=== PATIENT | female | born 1945 | race Caucasian/White ===

== ENCOUNTER 2020-10-10 14:58 | Outpatient (CLI) | payer MEDICARE, OTHER ==
[~2020-10-10] VITALS: Ht 154.9 cm; Wt 37.9 kg
[2020-10-10] MEDS ORDERED: CELEXA10 MG PO (15:38)
[2020-10-10] MEDS ORDERED: PRINIVIL40 MG PO (15:38)
[2020-10-10] MEDS ORDERED: NORVASC 10MG10 MG PO (15:39)
[2020-10-10] MEDS ORDERED: PLAVIX 75MG TAB75 MG PO (15:39)
[2020-10-10] MEDS ORDERED: APRESOLINE 25MG25 MG PO (15:40)
[2020-10-10] MEDS ORDERED: ATARAX 25MG25 MG/TAB PO (15:41)
[2020-10-10] MEDS ORDERED: ASPIRIN E.C. 8181 MG PO (15:42)
[2020-10-10] MEDS ORDERED: VITAMIN D31000 I1 PO (15:43)
[2020-10-10 15:44] VITALS: BP 148/71; PULSE 87; TEMP 98.5
== END 2020-10-10 17:10 | disposition home or self-care (01) ==
LOC: EUO 14:58
DX: M81.0 Age-related osteoporosis without current pathological fracture (principal)
CPT/HCPCS: J0897

== ENCOUNTER 2020-11-25 01:18 | Observation (INO) | payer MEDICARE, OTHER ==
[~2020-11-25] VITALS: Ht 154 cm; Wt 38.6 kg
[~2020-11-25 01:18] MED LIST: APRESOLINE 25MG25 MG PO; ASPIRIN E.C. 8181 MG PO; ATARAX 25MG25 MG/TAB PO; CELEXA10 MG PO; NORVASC 10MG10 MG PO; PLAVIX 75MG TAB75 MG PO; PRINIVIL40 MG PO; VITAMIN D31000 I1 PO
[2020-11-25 01:43] LABS: HEMATOCRIT 38.7 % (37.0-47.0); HEMOGLOBIN 12.6 g/dl (12.5-16.0); MEAN CORPUSCULAR HEMOGLOBIN 29 pg (27.0-31.0); RED BLOOD COUNT 4.39 M/mm3 (4.10-5.30)
[2020-11-25 01:44] LABS: BASO % 0.2 % (0.0-2.0); EOS # 0.1 (0.0-0.7); EOS % 0.6 % (0-4.0); GRAN # 11.1 (1.4-6.5); LYMPH # 0.6 (1.2-3.4); MEAN CELL VOLUME 88 fl (80.0-100.0); MEAN CORPUSCULAR HGB CONC 33 g/dl (33.0-37.0); MEAN PLATELET VOLUME 10.3 fl (7.4-10.4); MONO # 0.5 (0.1-0.6); MONO % 3.8 % (1.7-9.3); PLATELET COUNT 243 K/mm3 (130-400); REDCELL DISTRIBUTION WIDTH-CV 13.3 % (11.5-14.5)
[2020-11-25 01:49] LABS: ALBUMIN 3.7 gm/dL (3.5-5.0); BLOOD UREA NITROGEN 39 mg/dL (7-17); CARBON DIOXIDE 17 mmol/L (22-30); CHLORIDE 106 mmol/L (98-107); CREATININE, serum 1.22 (0.52-1.25); GLUCOSE 180 mg/dL (74-106); SODIUM 134 mmol/L (137-145); TOTAL PROTEIN 6.7 gm/dL (6.4-8.2)
[2020-11-25 01:50] LABS: ALANINE AMINOTRANSFERASE 20 U/L (4-34); ALKALINE PHOSPHATASE 55 U/L (50-136); AST,SGOT 35 U/L (15-37); BILIRUBIN,TOTAL 0.6 mg/dL (0.0-1.0); C-REACTIVE PROTEIN < 0.5 mg/dL (0.0-0.9); TROPONIN-I < 0.012 ng/mL (0.000-0.035)
[2020-11-25 01:51] LABS: ANION GAP 11 mmol/L (7-16)
[2020-11-25] MEDS ORDERED: NORVASC 5MG5 MG/TAB PO (03:15)
[2020-11-25] MEDS ORDERED: PROVENTIL0.09 MG/A1 IH (03:19)
[2020-11-25] MEDS ORDERED: PROLIA60 MG/ML SQ (03:19)
[2020-11-25] MEDS ORDERED: IPRATROPIUM BROM3 M1 IH (03:20)
[2020-11-25] MEDS ORDERED: ANTIVERT 12.512.5 MG PO (03:20)
[2020-11-25 05:08] VITALS: BP 127/42; PULSE 83; TEMP 98.2
--- NOTE | 2020-11-25 05:33 | NUR ---
Patient up to room 344 via stretcher. Moved over and repositioned. Oriented to room and call light. Admission complete. Patient has complaints of nausea. Fluids started and phenergen administered. No additional needs at this time.
[2020-11-25 07:32] VITALS: BP 103/53; PULSE 85; TEMP 98.7
--- NOTE | 2020-11-25 08:00 | NUR ---
Patient in bed resting. Alert and oriented x 3. Assessment complete. Fluids infusing per orders. Mouth swabs provided for dry mouth. Denies further needs at this time.
--- NOTE | 2020-11-25 11:00 | NUR ---
Contacted hospitalist for diet order, patient would like ice chips. New diet entered at this time.
[2020-11-25 11:15] VITALS: BP 115/41; PULSE 85; TEMP 98.1
--- NOTE | 2020-11-25 13:04 | NUR ---
Director Of Regulatory Affairs offered prayer and support with patient while family was in room.
--- NOTE | 2020-11-25 14:07 | NUR ---
Plan to return home with support from Family and Son IN LAW Bernardo and Neva DTR [phone]. PCP is Dr. Martell. DME use [facility] Patient reports that she resides with her DTR and SON in law. Patient indicated that she has support and her DTR is home with her all day. Educated on waiting on PT/OT recommedations and educated on Home health supports. Patient reports that she uses [employer] Patient report that she is fairly independent. Will follow for additional supports.
[2020-11-25 15:03] LABS: COLLECTION METHOD CATHETER
[2020-11-25 15:19] LABS: MUCOUS Present /lpf; PH 5 (5-8); SQUAMOUS EPITHELIAL 0-2 /hpf; URINE APPEARANCE Hazy; URINE BACTERIA Many /hpf; URINE BILIRUBIN Negative (NEGATIVE); URINE BLOOD Negative (NEGATIVE); URINE COLOR Yellow; URINE GLUCOSE Negative (NEGATIVE); URINE KETONE Trace (NEGATIVE); URINE LEUKOCYTE ESTERASE 3+ (NEGATIVE); URINE NITRATE Positive (NEGATIVE); URINE PROTEIN(semi-quant) Negative (NEGATIVE); URINE UROBILINOGEN Negative (NEGATIVE)
[2020-11-25 15:36] VITALS: BP 112/42; PULSE 86; TEMP 99.1
--- NOTE | 2020-11-25 16:14 | NUR ---
Contacted Dr. Justin about UA.
--- NOTE | 2020-11-25 17:55 | NUR ---
Patient family called out, states she started having pain to RLE, sudden onset. Radiating from ankle to hip. Dr. Justin in to see patient.
--- NOTE | 2020-11-25 19:02 | NUR ---
Patient doing well throughout the day, continues to have mild nausea. Phenergan given this afternoon for increased nausea. Family remains at bedside through the day. Denies needs at this time. Reported off to supervisor machine setter.
[2020-11-25 20:12] VITALS: BP 109/44; PULSE 89; TEMP 99
[2020-11-26] VITALS (7 sets, daily range): BP systolic 92–132; BP diastolic 33–53; PULSE 77–96; TEMP 97.6–98.7
--- NOTE | 2020-11-26 04:56 | NUR ---
PT IN BED. WARM PACK APPLIED TO RIGHT FOOT. NO N/V ON CERTIFIED SCRUM MASTER. POOR P.O. INTAKE. AFEBRILE.
[2020-11-26 06:30] LABS: BASO % 0.3 % (0.0-2.0); GRAN # 2.5 (1.4-6.5); GRAN % 77.5 % (42.2-75.2); LYMPH # 0.5 (1.2-3.4); LYMPH % 14.1 % (20.0-51.0); MEAN CELL VOLUME 91 fl (80.0-100.0); MEAN CORPUSCULAR HGB CONC 31 g/dl (33.0-37.0); MEAN PLATELET VOLUME 10.5 fl (7.4-10.4); MONO # 0.2 (0.1-0.6); MONO % 7.5 % (1.7-9.3); PLATELET COUNT 164 K/mm3 (130-400); RED BLOOD COUNT 3.55 M/mm3 (4.10-5.30); REDCELL DISTRIBUTION WIDTH-CV 13.8 % (11.5-14.5)
[2020-11-26 06:42] LABS: CALCIUM 6.4 mg/dL (8.4-10.2); CREATININE, serum 1.02 (0.52-1.25); HEMATOCRIT 32.3 % (37.0-47.0); HEMOGLOBIN 10.1 g/dl (12.5-16.0); MEAN CORPUSCULAR HEMOGLOBIN 28 pg (27.0-31.0); POTASSIUM 4.2 mmol/L (3.4-5.0)
--- NOTE | 2020-11-26 08:30 | NUR ---
Patient resting in bed. Offered to get her up out of bed, but she reports she needs time to wake up. Tyelnol for pain. applejuice for breakfast no other interst.
--- NOTE | 2020-11-26 10:30 | NUR ---
Hospitalist rounded. Plan of care reviewed. Patient family at bedside. food ordered. Patietn denies nausea. Just minimal appetite.
--- NOTE | 2020-11-26 12:00 | NUR ---
Patient assisted to take a shower. Patient did not want to wash her hair. She is steady of her feet with walker. Fresh linens. She tolerated fruit, does not like the ensure. Po intake encourage. Ivf per orders. Patient voided while up dark laverne urine. Her supportive family at bedside.
--- NOTE | 2020-11-26 14:56 | NUR ---
Patient resting in bed. Tylenol for continued chronic joint pain. continues to encouraged po intake. her sone at bedside.
--- NOTE | 2020-11-26 18:58 | NUR ---
Patient resting in bed with family at her side. Dinner ordered. Thankful for cares given. Ivf per orders. She is in positive spirits. Bedside report to night nurse
--- NOTE | 2020-11-26 21:41 | NUR ---
PT SITTING AT EDGE OF BED, TAKES HS MED. SHORT OF BREATH WITH ACTIVITY, OXYGEN AT 1L/NC. IS ALERT AND ORIENTED X4. IVF TO RIGHT FOREARM. LUNGS DIMINISHED BILATERALLY, NPC. ASSISTED TO BATHROOM, VOIDS 300CC DARK YELLOW URINE. BACK TO BED.
[2020-11-27 04:00] VITALS: BP 127/56; PULSE 90; TEMP 98.2
--- NOTE | 2020-11-27 06:00 | NUR ---
PT HAS RESTED POORLY THIS SHIFT. SCHEDULED TORADOL GIVEN. IVF TO RIGHT WRIST.
[2020-11-27 06:40] LABS: MEAN CELL VOLUME 91 fl (80.0-100.0); MEAN CORPUSCULAR HGB CONC 32 g/dl (33.0-37.0); MEAN PLATELET VOLUME 10.9 fl (7.4-10.4); PLATELET COUNT 144 K/mm3 (130-400); RED BLOOD COUNT 3.35 M/mm3 (4.10-5.30); REDCELL DISTRIBUTION WIDTH-CV 14.1 % (11.5-14.5)
[2020-11-27 06:42] LABS: HEMATOCRIT 30.6 % (37.0-47.0); HEMOGLOBIN 9.9 g/dl (12.5-16.0); MEAN CORPUSCULAR HEMOGLOBIN 30 pg (27.0-31.0)
[2020-11-27 06:48] LABS: CREATININE, serum 0.89 (0.52-1.25); POTASSIUM 4.7 mmol/L (3.4-5.0)
[2020-11-27 07:43] LABS: BAND 34 % (0-10); LYMPHOCYTE 7 % (20.0-51.0); NEUTROPHILS 58 % (42.0-75.2); OVALOCYTES 1+; PLATELET ESTIMATE NORMAL (NORMAL); SCHISTOCYTES 1+
[2020-11-27 07:44] LABS: BURR CELLS 1+
[2020-11-27 08:00] VITALS: BP 144/57; PULSE 98; TEMP 97.8
--- NOTE | 2020-11-27 08:20 | NUR ---
Patient sitting up on edge of bed. Alert and oriented x 3. Assessment complete. Denies pain at this time. Fluids infusing per orders to right forarm IV. States she is feeling better this morning, continues having SOA with activity. Denies further needs at this time.
[2020-11-27] MEDS ORDERED: OMNICEF 300MG300 MG PO (08:49)
[2020-11-27] MEDS ORDERED: PRINIVIL20 MG PO (08:50)
--- NOTE | 2020-11-27 09:00 | NUR ---
Patient O2 at 80% after ambulation, Patient placed on 1 L O2 when back to bed and O2 increased to 90%. Patient refusing home oxygen, educated patient on oxygen use. Continues to refuse. Dr. Quan aware.
--- NOTE | 2020-11-27 09:33 | NUR ---
Left message with PCP office to call and schedule follow up appointment with patient.
--- NOTE | 2020-11-27 11:00 | NUR ---
Discharge education provided to patient. Educated on when to call provider and follow up appointment/labs. Patient and son educated on all new medications and when to take. Assisted patient to dress when she felt short of breath, placed patient on 2 L O2 at this time and states she feels better. States she would like home oxygen at least until she feels better. Notified Dr. Quan and SW. No further needs at this time.
[2020-11-27] MEDS ORDERED: OXYGEN (11:15)
[2020-11-27 11:16] VITALS: BP 132/60; PULSE 98; TEMP 98.2
--- NOTE | 2020-11-27 13:03 | NUR ---
Patient refuses lunch at this time, did eat some chocolate ice cream.
--- NOTE | 2020-11-27 14:06 | NUR ---
Oxygen delivered to patient and son, educated on use of oxygen, verbalized understanding. No further needs at this time. Patient out by wheelchair with family and surgical staff.
--- NOTE | 2020-11-27 16:18 | NUR ---
Implementation Director attended clinical rounds with the team and patient to discharge home today. SW spoke with patient about Home Health services, however patient declined at this time. Patient does qualify for home oxygen and would like the supplies ordered from [facility]. Patient's son, Bernardo is at bedside and advised he could orange picker machine operator oxygen for patient if [facility] could not deliver. JONATHON contacted Mackenzie at [facility] and faxed referral. Mackenzie advised they would deliver oxygen this afternoon. Discharge Plan: Home with family.
== END 2020-11-27 14:07 | disposition home or self-care (01) ==
LOC: COL.ER 01:18 → SURG 02:23
PROVIDERS: Emergency Medicine; Internal Medicine; Nurse Practitioner Family; ADMIT Student in an Organized Health Care Education/Training Program
DX: R11.2 Nausea with vomiting, unspecified (principal); R19.7 Diarrhea, unspecified; E43 Unspecified severe protein-calorie malnutrition; N17.9 Acute kidney failure, unspecified; N39.0 Urinary tract infection, site not specified; E87.1 Hypo-osmolality and hyponatremia; J96.01 Acute respiratory failure with hypoxia; J44.1 Chronic obstructive pulmonary disease with (acute) exacerbation; I10 Essential (primary) hypertension; R73.9 Hyperglycemia, unspecified; E86.0 Dehydration; R53.81 Other malaise; M19.90 Unspecified osteoarthritis, unspecified site; M81.0 Age-related osteoporosis without current pathological fracture; F41.9 Anxiety disorder, unspecified; F32.9 Major depressive disorder, single episode, unspecified; Z68.1 Body mass index [BMI] 19.9 or less, adult; Z79.82 Long term (current) use of aspirin; Z86.73 Personal history of transient ischemic attack (TIA), and cerebral infarction without residual deficits; Z79.02 Long term (current) use of antithrombotics/antiplatelets; Z79.899 Other long term (current) drug therapy; Z87.891 Personal history of nicotine dependence; Z90.89 Acquired absence of other organs; Z90.49 Acquired absence of other specified parts of digestive tract
CPT/HCPCS: 99222-AI; 99232-AI; A9284; G0378; J1650; J1885; J2405; J2550; J2920; J7030

== ENCOUNTER 2020-12-06 03:43 | Inpatient (IN) | payer MEDICARE, OTHER ==
[2020-12-06] VITALS (275 sets, daily range): BP systolic 137–150; BP diastolic 60–80; PULSE 90–108; TEMP 09.8; O2SAT 56–100
[~2020-12-06] VITALS: Ht 154.9 cm; Wt 42.9 kg
[~2020-12-06 03:43] MED LIST changes: +ANTIVERT 12.512.5 MG PO; +IPRATROPIUM BROM3 M1 IH; +NORVASC 5MG5 MG/TAB PO; +OMNICEF 300MG300 MG PO; +OXYGEN; +PRINIVIL20 MG PO; +PROLIA60 MG/ML SQ; +PROVENTIL0.09 MG/A1 IH
[2020-12-06 04:11] LABS: BASO # 0.1 (0.0-0.2); BASO % 0.3 % (0.0-2.0); EOS # 0.2 (0.0-0.7); GRAN # 13.2 (1.4-6.5); GRAN % 79.6 % (42.2-75.2); HEMOGLOBIN 11.5 g/dl (12.5-16.0); LYMPH # 2.2 (1.2-3.4); LYMPH % 12.9 % (20.0-51.0); MEAN CELL VOLUME 91 fl (80.0-100.0); MEAN CORPUSCULAR HEMOGLOBIN 29 pg (27.0-31.0); MEAN CORPUSCULAR HGB CONC 32 g/dl (33.0-37.0); MEAN PLATELET VOLUME 10.1 fl (7.4-10.4); MONO # 0.9 (0.1-0.6); MONO % 5.4 % (1.7-9.3); PLATELET COUNT 322 K/mm3 (130-400); RED BLOOD COUNT 4.01 M/mm3 (4.10-5.30); REDCELL DISTRIBUTION WIDTH-CV 15.2 % (11.5-14.5)
[2020-12-06 04:12] LABS: HEMATOCRIT 36.3 % (37.0-47.0)
[2020-12-06 04:23] LABS: ALBUMIN 3.1 gm/dL (3.5-5.0); BILIRUBIN,TOTAL 0.5 mg/dL (0.0-1.0); CALCIUM 8.7 mg/dL (8.4-10.2); CREATININE, serum 0.86 (0.52-1.25); POTASSIUM 3.6 mmol/L (3.4-5.0)
[2020-12-06 04:39] LABS: TROPONIN-I 0.043 ng/mL (0.000-0.035)
--- NOTE | 2020-12-06 05:30 | NUR ---
Received report from MEME Bruno RN.
--- NOTE | 2020-12-06 05:40 | NUR ---
Patient arrives to ICU room 4 via ED stretcher. Patient's son, Bernardo, who is also patient's DPOA, is at bedside. Gisele, hospitalist, is also at bedside. Patient is A&Ox4; she denies any pain. All initial vitals within normal limits. She arrives receiving 5L oxygen via oxymask, tolerating well. She is noted to be more short of breath with activity. Patient arrives with a saline locked peripheral 20G IV to the [facility]. Her belongings include street clothes, top and bottom dentures, glasses, and a cell phone and big machine consultant. She denies having hearing aids. Patient has wallet at bedside; no kidd included. She denies use of hospital safe when offered. Reports using a walker at home to ambulate. Call light within reach, bed in lowest position, and all alarms are on. No further needs noted at this time.
[2020-12-06] MEDS ORDERED: PRINIVIL40 MG PO (06:38)
[2020-12-06 07:19] LABS: ARTERIAL BLD GAS O2 SATURATION 97.7 % (92-100); ARTERIAL BLD GAS TCO2 CT 24.7; ARTERIAL BLOOD GAS BASE EXCESS -1.1 (-2-2); ARTERIAL BLOOD GAS HCO3 23.6 meq/L (22-26); ARTERIAL BLOOD GAS PCO2 38.9 mmHg (35-45); ARTERIAL BLOOD GAS PO2 109.9 mmHg (80-100)
--- NOTE | 2020-12-06 07:30 | NUR ---
Report given to MELANIE Turcios. Care transferred at this time.
--- NOTE | 2020-12-06 10:11 | NUR ---
Medical Safety Director met with the patient to complete intake. The patient is a readmission. The patient discharged on 11/27. Her appointment with her PCP was on 11/28. The patient was taking all her medications as prescribed. At discharge the patient qualified for oxgyen and is now on 2L. The patient declined home health at discharge but was eventually set up with [facility]. The patient lives in [place] with her son Bernardo. Also residing in the home is Bernardo's Neva. The patient is on 2L oxgyen at home. The patient has a rolator. The patient receives assistance from Neva for showers and it is to ensure saftey. The patient reports complete independence with other ADLs. The patient does not have advanced directives in the EMR but there is a copy place in the chart. Bernardo and Neva are designees. The patient plans to return home with [facility]. JONATHON contacted Denisa with [facility]. She confirms the patient began 12/05 with PT/OT/alf services. *Discharge disposition at this time: Home with family and [facility]. PT/OT/Jail services.
[2020-12-06 10:13] LABS: PARTIAL THROMBOPLASTIN TIME 33.2 SECONDS (26.0-37.0)
--- NOTE | 2020-12-06 15:12 | NUR ---
First visit from the slide fastener chain assembler. No needs right now.
--- NOTE | 2020-12-06 19:22 | NUR ---
Report given to MELANIE Holt.
--- NOTE | 2020-12-06 20:15 | NUR ---
Assessment complete. Pt is AXO X3, denies having any pain at this time. Pt is sitting up in the bed watching TV at this time and she denies further needs. Call light within reach.
[2020-12-07] VITALS (736 sets, daily range): BP systolic 108–154; BP diastolic 58–84; PULSE 74–88; TEMP 98.2–98.6; O2SAT 56–100
--- NOTE | 2020-12-07 04:00 | NUR ---
Heparin gtt stopped at this time per Dr. Gurrola.
--- NOTE | 2020-12-07 07:16 | NUR ---
Bedside shift report given to MELANIE Turcios.
[2020-12-07 07:31] LABS: HEMATOCRIT 31.4 % (37.0-47.0); HEMOGLOBIN 10.3 g/dl (12.5-16.0); MEAN CELL VOLUME 89 fl (80.0-100.0); MEAN CORPUSCULAR HEMOGLOBIN 29 pg (27.0-31.0); MEAN CORPUSCULAR HGB CONC 33 g/dl (33.0-37.0); MEAN PLATELET VOLUME 9.8 fl (7.4-10.4); PLATELET COUNT 257 K/mm3 (130-400); RED BLOOD COUNT 3.55 M/mm3 (4.10-5.30); REDCELL DISTRIBUTION WIDTH-CV 14.8 % (11.5-14.5)
[2020-12-07 07:46] LABS: CALCIUM 8.5 mg/dL (8.4-10.2); CREATININE, serum 0.96 (0.52-1.25); POTASSIUM 4.3 mmol/L (3.4-5.0)
[2020-12-07 07:58] LABS: TROPONIN-I 0.156 ng/mL (0.000-0.035)
[2020-12-07 08:15] LABS: BAND 1 % (0-10); LYMPHOCYTE 3 % (20.0-51.0); NEUTROPHILS 90 % (42.0-75.2)
[2020-12-07 08:17] LABS: HYPOCHROMIA 1+
[2020-12-07 08:18] LABS: PLATELET ESTIMATE NORMAL (NORMAL)
--- NOTE | 2020-12-07 09:10 | NUR ---
Dr. Fajardo into see patient. Heart cath scheduled for today. PO prednisone ordered to give now and give the IV prophylactic medications for contrast allergy 1-2 hours before procedure.
--- NOTE | 2020-12-07 09:18 | NUR ---
Bilingual Inside Sales Representative faxed updates to Denisa with [facility].
--- NOTE | 2020-12-07 14:30 | NUR ---
Product Transfer Pumper attended clinical rounds with the team. The patient to have a heart cath this day. *Discharge disposition at this time: Home with family and [facility]
--- NOTE | 2020-12-07 20:15 | NUR ---
Assessment complete. Pt is AXO X3, denies having any pain at this time. Pt is resting quietly in the bed watching TV at this time and she denies further needs. Call light within reach.
[2020-12-08] VITALS (307 sets, daily range): BP systolic 116–155; BP diastolic 51–78; PULSE 79–86; TEMP 97.7–98.5; O2SAT 62–100
[2020-12-08 05:24] LABS: GRAN # 8.8 (1.4-6.5); GRAN % 92.5 % (42.2-75.2); LYMPH # 0.3 (1.2-3.4); LYMPH % 2.6 % (20.0-51.0); MEAN CELL VOLUME 89 fl (80.0-100.0); MEAN CORPUSCULAR HGB CONC 32 g/dl (33.0-37.0); MEAN PLATELET VOLUME 10.1 fl (7.4-10.4); MONO # 0.4 (0.1-0.6); MONO % 4.4 % (1.7-9.3); PLATELET COUNT 247 K/mm3 (130-400); RED BLOOD COUNT 3.32 M/mm3 (4.10-5.30); REDCELL DISTRIBUTION WIDTH-CV 14.7 % (11.5-14.5)
[2020-12-08 05:38] LABS: HEMATOCRIT 29.4 % (37.0-47.0); HEMOGLOBIN 9.5 g/dl (12.5-16.0); MEAN CORPUSCULAR HEMOGLOBIN 29 pg (27.0-31.0)
[2020-12-08 05:40] LABS: CALCIUM 8.2 mg/dL (8.4-10.2); CREATININE, serum 0.93 (0.52-1.25); POTASSIUM 3.7 mmol/L (3.4-5.0)
--- NOTE | 2020-12-08 07:10 | NUR ---
RECEIVED REPORT FROM MELANIE CADENA. PT SITTING UP IN BED ON 0.5L VIA NC. VSS. CALL LIGHT WITHIN REACH.
--- NOTE | 2020-12-08 07:30 | NUR ---
Bedside shift report given to MELANIE Campoverde.
[2020-12-08] MEDS ORDERED: MONODOX100 PO (11:12)
[2020-12-08] MEDS ORDERED: NORVASC 5MG5 MG/TAB PO (11:13)
[2020-12-08] MEDS ORDERED: PERFOROMIS20 MCG/2 M IH (11:13)
[2020-12-08] MEDS ORDERED: PULMICORT0.5 MG/2 M IH ×2 (11:14)
[2020-12-08] MEDS ORDERED: ATROVENT I0.2 MG/1 M IH (11:15)
[2020-12-08] MEDS ORDERED: LASIX 20MG TABL20 MG PO (11:17)
--- NOTE | 2020-12-08 11:25 | NUR ---
PER DR LOONEY, HE WILL FOLLOW UP WITH PT OUTPATIENT IN SIX WEEKS FOR OXYGEN DETERMINIATION. DR LOUIS NOTIFIED THAT PT ALREADY HAS O2 AT HOME.
[2020-12-08] MEDS ORDERED: ARNUITY IH (17:28)
--- NOTE | 2020-12-11 12:05 | NUR ---
(late entry) The patient discharged home on 12/08 with family and [facility]. PT/OT/longterm. SW faxed discharge orders and informed Glen of the discharge. There are no additional needs.
== END 2020-12-08 12:40 | disposition home health service (06) | DRG 280 ==
LOC: COL.ER 03:43 → ICU 05:01
PROVIDERS: Emergency Medicine; Student in an Organized Health Care Education/Training Program; ADMIT Emergency Medicine
PROC: 4A023N8 Measurement of Cardiac Sampling and Pressure, Bilateral, Percutaneous Approach (ICD-10-PCS; principal; 2020-12-07)
PROC: B2111ZZ Fluoroscopy of Multiple Coronary Arteries using Low Osmolar Contrast (ICD-10-PCS; 2020-12-07)
DX: I11.0 Hypertensive heart disease with heart failure (principal); J96.01 Acute respiratory failure with hypoxia; I21.4 Non-ST elevation (NSTEMI) myocardial infarction; E43 Unspecified severe protein-calorie malnutrition; J90 Pleural effusion, not elsewhere classified; R65.10 Systemic inflammatory response syndrome (SIRS) of non-infectious origin without acute organ dysfunction; E87.3 Alkalosis; Z68.1 Body mass index [BMI] 19.9 or less, adult; I50.33 Acute on chronic diastolic (congestive) heart failure; J44.9 Chronic obstructive pulmonary disease, unspecified; M81.0 Age-related osteoporosis without current pathological fracture; E87.5 Hyperkalemia; I27.20 Pulmonary hypertension, unspecified; E87.70 Fluid overload, unspecified; F32.9 Major depressive disorder, single episode, unspecified; F41.9 Anxiety disorder, unspecified; Z66 Do not resuscitate; Z20.822 Contact with and (suspected) exposure to COVID-19; R53.81 Other malaise; R73.9 Hyperglycemia, unspecified; Z79.01 Long term (current) use of anticoagulants; Z86.73 Personal history of transient ischemic attack (TIA), and cerebral infarction without residual deficits; Z90.89 Acquired absence of other organs; Z90.49 Acquired absence of other specified parts of digestive tract
CPT/HCPCS: 99223-AI; 99233-AI; 99239; C1769; C1894; J1200; J1644; J1650; J1940; J2250; J2930; J3010; J7512; Q9967

== ENCOUNTER 2021-05-09 14:51 | Outpatient (CLI) | payer MEDICARE, OTHER ==
[~2021-05-09] VITALS: Ht 154.9 cm; Wt 37.0 kg
[~2021-05-09 14:51] MED LIST changes: +ARNUITY IH; +ATROVENT I0.2 MG/1 M IH; +LASIX 20MG TABL20 MG PO; +MONODOX100 PO; +PERFOROMIS20 MCG/2 M IH; +PULMICORT0.5 MG/2 M IH
[2021-05-09 17:18] VITALS: BP 149/78; PULSE 77; TEMP 98
== END 2021-05-09 16:30 | disposition home or self-care (01) ==
LOC: EUO 14:51
DX: M81.0 Age-related osteoporosis without current pathological fracture (principal)
CPT/HCPCS: J0897

== ENCOUNTER 2021-08-24 07:07 | Emergency (ER) | payer MEDICARE, OTHER ==
[~2021-08-24] VITALS: Ht 152.4 cm; Wt 39.1 kg
[2021-08-24 07:09] VITALS: TEMP 97.6
[2021-08-24 07:37] LABS: BASO % 0.4 % (0.0-2.0); EOS # 0.2 K/mm3 (0.0-0.7); EOS % 2.8 % (0.0-4.0); GRAN # 3.8 K/mm3 (1.4-6.5); HEMOGLOBIN 11.2 g/dl (12.5-16.0); LYMPH % 18.1 % (20.0-51.0); MEAN CELL VOLUME 86 fl (80.0-100.0); MEAN CORPUSCULAR HEMOGLOBIN 29 pg (27-31); MEAN CORPUSCULAR HGB CONC 33 g/dl (33.0-37.0); MEAN PLATELET VOLUME 10.2 fl (7.4-10.4); MONO # 0.4 K/mm3 (0.1-0.6); MONO % 7.5 % (1.7-9.3); PLATELET COUNT 208 K/mm3 (130-400); RED BLOOD COUNT 3.92 M/mm3 (4.10-5.30); REDCELL DISTRIBUTION WIDTH-CV 14.2 % (11.5-14.5)
[2021-08-24 07:43] LABS: HEMATOCRIT 33.8 % (37.0-47.0)
[2021-08-24 07:55] LABS: ALBUMIN 3.5 gm/dL (3.4-4.8); BILIRUBIN,TOTAL 0.6 mg/dL (0.2-1.2); CREATININE, serum 1.13 mg/dL (0.57-1.11); POTASSIUM 4.5 mmol/L (3.5-4.5)
[2021-08-24] MEDS ORDERED: ASPIRIN 81M81 MG/TA2 PO (08:14)
[2021-08-24 09:10] VITALS: BP 176/74; PULSE 90
== END 2021-08-24 09:56 | disposition home or self-care (01) ==
LOC: COL.ER 07:07
PROVIDERS: Personal Emergency Response Attendant
DX: S05.32XA Ocular laceration without prolapse or loss of intraocular tissue, left eye, initial encounter (principal); S13.9XXA Sprain of joints and ligaments of unspecified parts of neck, initial encounter; J44.9 Chronic obstructive pulmonary disease, unspecified; I10 Essential (primary) hypertension; F41.9 Anxiety disorder, unspecified; F32.A Depression, unspecified; Z71.89 Other specified counseling; Z79.899 Other long term (current) drug therapy; W06.XXXA Fall from bed, initial encounter

== ENCOUNTER 2021-11-16 14:55 | Outpatient (CLI) | payer MEDICARE, OTHER ==
[~2021-11-16 14:55] MED LIST changes: +ASPIRIN 81M81 MG/TA2 PO; -VITAMIN D31000 I1 PO; +VITAMIND3 5000 PO
[2021-11-16] MEDS ORDERED: LASIX 20MG TABL20 MG PO (15:12)
[2021-11-16] MEDS ORDERED: PULMICORT R1 MG/2 ML IH (15:14)
[2021-11-16] MEDS ORDERED: PERFOROMIS20 MCG/2 M IH (15:14)
[2021-11-16] MEDS ORDERED: ATROVENT I0.2 MG/1 M IH (15:15)
[2021-11-16 15:16] VITALS: BP 160/71; PULSE 72; TEMP 97.6
== END 2021-11-16 17:35 | disposition home or self-care (01) ==
LOC: EUO 14:55
DX: M81.0 Age-related osteoporosis without current pathological fracture (principal)
CPT/HCPCS: J0897

== ENCOUNTER 2022-03-01 18:38 | Emergency (ER) | payer MEDICARE, OTHER ==
[~2022-03-01] VITALS: Ht 152.4 cm; Wt 39.1 kg
[~2022-03-01 18:38] MED LIST changes: +PULMICORT R1 MG/2 ML IH
[2022-03-01 18:39] VITALS: TEMP 97.9
[2022-03-01 18:59] LABS: BASO % 0.4 % (0.0-2.0); EOS # 0.1 K/mm3 (0.0-0.7); GRAN # 8.4 K/mm3 (1.4-6.5); GRAN % 81.9 % (42.2-75.2); HEMOGLOBIN 10.2 g/dl (12.5-16.0); LYMPH % 9.8 % (20.0-51.0); MEAN CELL VOLUME 89 fl (80.0-100.0); MEAN CORPUSCULAR HEMOGLOBIN 30 pg (27-31); MEAN CORPUSCULAR HGB CONC 33 g/dl (33.0-37.0); MEAN PLATELET VOLUME 9.9 fl (7.4-10.4); MONO # 0.7 K/mm3 (0.1-0.6); MONO % 6.6 % (1.7-9.3); PLATELET COUNT 296 K/mm3 (130-400); RED BLOOD COUNT 3.45 M/mm3 (4.10-5.30); REDCELL DISTRIBUTION WIDTH-CV 14.3 % (11.5-14.5)
[2022-03-01 19:04] LABS: HEMATOCRIT 30.7 % (37.0-47.0)
[2022-03-01] MEDS ORDERED: ELIQUIS 2.5 PO (19:10)
[2022-03-01] MEDS ORDERED: VITAMIN D31000 I1 PO (19:11)
[2022-03-01 19:18] LABS: ALBUMIN 3.6 gm/dL (3.4-4.8); BILIRUBIN,TOTAL 0.4 mg/dL (0.2-1.2); CALCIUM 9.4 mg/dL (8.4-10.2); CREATININE, serum 1.2 mg/dL (0.57-1.11)
[2022-03-01 19:22] LABS: COLLECTION METHOD CLEAN CATCH
[2022-03-01 19:41] LABS: URINE APPEARANCE Clear (CLEAR/HAZY); URINE BLOOD Negative (NEGATIVE); URINE COLOR Yellow (YELLOW); URINE GLUCOSE Negative (NEGATIVE); URINE KETONE Negative (NEGATIVE); URINE NITRATE Negative (NEGATIVE); URINE PROTEIN(semi-quant) Negative (NEGATIVE); URINE UROBILINOGEN 0.2 E.U/dL (0.2-1.0)
[2022-03-01 19:43] LABS: TROPONIN-I 0.015 ng/mL (0.00-0.033)
[2022-03-01 19:44] LABS: SQUAMOUS EPITHELIAL 0-2 /hpf (0-10); URINE BACTERIA None Seen /hpf (NONE SEEN); URINE RBC 0-2 /hpf (0-2)
[2022-03-01] MEDS ORDERED: OMNICEF 300MG300 MG PO (21:34)
[2022-03-01] MEDS ORDERED: DOXYCYCLINE 10100 MG PO (21:34)
[2022-03-01 23:00] VITALS: BP 143/79; PULSE 84
== END 2022-03-01 23:30 | disposition home or self-care (01) ==
LOC: COL.ER 18:38
PROVIDERS: Nurse Practitioner Primary Care
DX: J18.9 Pneumonia, unspecified organism (principal); J44.9 Chronic obstructive pulmonary disease, unspecified; M54.50 Low back pain, unspecified; Z87.891 Personal history of nicotine dependence; Z88.0 Allergy status to penicillin; Z99.81 Dependence on supplemental oxygen
CPT/HCPCS: J0696; J1200; J1790; J2060; J2930; Q9967

== ENCOUNTER 2022-04-24 20:30 | Inpatient (IN) | payer MEDICARE, OTHER ==
[~2022-04-24] VITALS: Ht 152.4 cm; Wt 37.0 kg
[~2022-04-24 20:30] MED LIST changes: +DOXYCYCLINE 10100 MG PO; +ELIQUIS 2.5 PO; +VITAMIN D31000 I1 PO
[2022-04-24 20:59] LABS: BASO % 0.4 % (0.0-2.0); EOS # 0.1 K/mm3 (0.0-0.7); EOS % 1.5 % (0.0-4.0); GRAN % 69.8 % (42.2-75.2); LYMPH # 1.4 K/mm3 (1.2-3.4); LYMPH % 19.8 % (20.0-51.0); MEAN CELL VOLUME 88 fl (80.0-100.0); MEAN CORPUSCULAR HGB CONC 32 g/dl (33.0-37.0); MEAN PLATELET VOLUME 9.7 fl (7.4-10.4); MONO # 0.6 K/mm3 (0.1-0.6); MONO % 8.4 % (1.7-9.3); PLATELET COUNT 334 K/mm3 (130-400); RED BLOOD COUNT 3.46 M/mm3 (4.10-5.30); REDCELL DISTRIBUTION WIDTH-CV 15.2 % (11.5-14.5)
[2022-04-24 21:00] LABS: HEMATOCRIT 30.6 % (37.0-47.0); HEMOGLOBIN 9.9 g/dl (12.5-16.0); MEAN CORPUSCULAR HEMOGLOBIN 29 pg (27-31)
[2022-04-24 21:16] LABS: ALBUMIN 3.5 gm/dL (3.4-4.8); BILIRUBIN,TOTAL 0.3 mg/dL (0.2-1.2); CREATININE, serum 1.72 mg/dL (0.57-1.11); POTASSIUM 4.8 mmol/L (3.5-4.5); TOTAL PROTEIN 7.1 gm/dL (6.2-8.1)
[2022-04-24 21:21] LABS: TROPONIN-I 0.02 ng/mL (0.00-0.033)
[2022-04-24 23:03] LABS: COLLECTION METHOD CLEAN CATCH
[2022-04-24 23:27] LABS: PH 5.5 (5.0-8.5); URINE APPEARANCE Clear (CLEAR/HAZY); URINE BLOOD Negative (NEGATIVE); URINE COLOR Yellow (YELLOW); URINE GLUCOSE Negative (NEGATIVE); URINE KETONE Negative (NEGATIVE); URINE NITRATE Negative (NEGATIVE); URINE PROTEIN(semi-quant) Negative (NEGATIVE); URINE UROBILINOGEN 0.2 E.U/dL (0.2-1.0)
[2022-04-24 23:40] LABS: SQUAMOUS EPITHELIAL None Seen /hpf (0-10); URINE BACTERIA None Seen /hpf (NONE SEEN); URINE RBC 0-2 /hpf (0-2)
[2022-04-25] MEDS ORDERED: LASIX 20MG TABL20 MG PO (00:06)
[2022-04-25] MEDS ORDERED: PRINIVIL40 MG PO (00:06)
[2022-04-25] MEDS ORDERED: NORVASC 5MG5 MG/TAB PO (00:06)
[2022-04-25] MEDS ORDERED: ELIQUIS 2.5 PO (00:07)
[2022-04-25] MEDS ORDERED: CELEXA10 MG PO (00:08)
[2022-04-25] MEDS ORDERED: ASPIRIN 81M81 MG/TA2 PO (00:08)
[2022-04-25] MEDS ORDERED: VITAMIND3 5000 PO (00:09)
[2022-04-25] MEDS ORDERED: PULMICORT0.5 MG/2 M IH (00:10)
[2022-04-25] MEDS ORDERED: SALONPAS1 EACH TP (00:16)
[2022-04-25 04:04] LABS: C-REACTIVE PROTEIN 0.43 mg/dL (0.00-0.50); MAGNESIUM 1.9 mg/dL (1.6-2.6); PHOSPHOROUS 3.3 mg/dL (2.3-4.7)
[2022-04-25 04:28] LABS: THYROID STIMULATING HORMONE 1.58 uIU/mL (0.350-4.940); TROPONIN-I 0.018 ng/mL (0.00-0.033)
[2022-04-25 08:26] LABS: BASO % 0.5 % (0.0-2.0); EOS # 0.1 K/mm3 (0.0-0.7); EOS % 1.9 % (0.0-4.0); GRAN # 3.5 K/mm3 (1.4-6.5); GRAN % 60.1 % (42.2-75.2); LYMPH # 1.6 K/mm3 (1.2-3.4); LYMPH % 28.1 % (20.0-51.0); MEAN CELL VOLUME 92 fl (80.0-100.0); MEAN CORPUSCULAR HGB CONC 32 g/dl (33.0-37.0); MEAN PLATELET VOLUME 10.1 fl (7.4-10.4); MONO # 0.5 K/mm3 (0.1-0.6); MONO % 9.1 % (1.7-9.3); PLATELET COUNT 301 K/mm3 (130-400); RED BLOOD COUNT 3.25 M/mm3 (4.10-5.30); REDCELL DISTRIBUTION WIDTH-CV 15.1 % (11.5-14.5)
[2022-04-25 08:27] LABS: HEMATOCRIT 29.8 % (37.0-47.0); HEMOGLOBIN 9.4 g/dl (12.5-16.0); MEAN CORPUSCULAR HEMOGLOBIN 29 pg (27-31)
[2022-04-25 15:27] VITALS: BP 131/62; PULSE 95; TEMP 97.9
--- NOTE | 2022-04-25 19:44 | NUR ---
PT RESTING IN BED COMFORTABLY. MOUTH PIECE TREATMENT GIVEN. PT TOLERATED WELL. NO ADVERSE RX. NO COMPLAINTS. NO VOICED CONCERNS. CALL LIGHT WITHIN REACH. PT O2 RESTARTED AFTER BREATHING TX. PT STATES SHE OCCASIONALLY WEARS O2 DURING DAY BUT WEARS 1.5 AT NIGHT AT HOME. NAME WRITTEN ON BOARD.
[2022-04-25 19:57] VITALS: BP 121/44; PULSE 86; TEMP 97.8
--- NOTE | 2022-04-25 22:50 | NUR ---
CALL TO Cresencio PAUL TO REPORT PATIENT PAIN IN LEFT HIP. PATIENT REQUESTING A LIDOCAINE PATCH FOR HIP AT SHE DOES AT HOME. ORDER ENTERED BY PROVIDER. THIS NURSE GAVE PATIENT EDUCATION ABOUT THE IMPORTANCE OF A PILLOW BETWEEN THE KNEES TO HELP TAKE PRESSURE OFF OF HIPS WHILE SLEEPING. THIS NURSE APPLIES PILLOW BETWEEN KNEES AND TUCKS PATIENT BACK TO BED. PATIENT EXPRESSES APPRECIATION FOR LIDOCAINE PATCH AND PILLOW. CALL LIGHT FIXED TO BED RAIL SO PATIENT DOESNT LOSE. PATIENT ENCOURAGED TO CALL WITH ANY NEEDS. PATIENT STATES UNDERSTANDING.
[2022-04-25 23:44] VITALS: BP 120/43; PULSE 86; TEMP 98.1
[2022-04-26 04:14] VITALS: BP 115/47; PULSE 83; TEMP 98.2
--- NOTE | 2022-04-26 04:24 | NUR ---
PATIENT HAD AN UNEVENTFUL NIGHT AFTER LIDOCAINE PATCH TO HIP AND PILLOW BETWEEN LEGS. PATIENT FOUND SLEEPING EVIDENCED BY CLOSED EYES AND SNORING DURING ROUNDS WITH CALL LIGHT WITHIN REACH.
[2022-04-26 07:32] VITALS: BP 122/53; PULSE 80; TEMP 97.7
--- NOTE | 2022-04-26 09:10 | NUR ---
Initial visit; Patient so sweet and appreciative of Personal Injury Litigation Paralegal visiting and offering prayer and God's blessings.
--- NOTE | 2022-04-26 09:26 | NUR ---
Initial visit attempt; Patient sleeping, Weigh And Charge Worker left card offering God's blessings and the availability of Spiritual Care at our Hospital.
--- NOTE | 2022-04-26 10:00 | NUR ---
EDUCATION REGARDIGN FLUID RESTRICTION REVIEWED WITH PATIENT. SHE WAS UNDERSTANDING AND ACCEPTING.
[2022-04-26 10:20] LABS: MEAN CELL VOLUME 92 fl (80.0-100.0); MEAN CORPUSCULAR HGB CONC 32 g/dl (33.0-37.0); MEAN PLATELET VOLUME 9.9 fl (7.4-10.4); PLATELET COUNT 324 K/mm3 (130-400); RED BLOOD COUNT 3.41 M/mm3 (4.10-5.30)
[2022-04-26 10:28] LABS: HEMATOCRIT 31.2 % (37.0-47.0); HEMOGLOBIN 9.9 g/dl (12.5-16.0); MEAN CORPUSCULAR HEMOGLOBIN 29 pg (27-31)
[2022-04-26 10:32] LABS: CALCIUM 9.5 mg/dL (8.4-10.2); CREATININE, serum 1.33 mg/dL (0.57-1.11); POTASSIUM 4.6 mmol/L (3.5-4.5)
[2022-04-26 11:12] VITALS: BP 128/40; PULSE 95; TEMP 97.8
--- NOTE | 2022-04-26 11:21 | NUR ---
PATIENT AWAKE AND ALERT, RESTING IN BED. CALL LIGHT WITHIN REACH. PAINMEDICATION GIVEN PER REQUEST, SEE EMAR. PATIENT WITH NO OTHER COMPLAINTS OR NEEDS AT THIS TIME.
[2022-04-26 12:03] LABS: HYPOCHROMIA 2+; LYMPHOCYTE 10 % (20.0-51.0); NEUTROPHILS 87 % (42.0-75.2); PLATELET ESTIMATE NORMAL (NORMAL)
--- NOTE | 2022-04-26 13:00 | NUR ---
Director Acute met with patient to discuss discharge planning. Patient lives in [place] with her son, Bernardo (ph#[phone]) and daughter in law, Neva (ph#[phone]). Patient sees Dr. Wetzel for primary care and obtains medications from [facility] with no difficulties. Patient has a rollator and scooter at home. Patient takes her scooter out for walks with her daughter in law, Neva who has a home daycare. Patient has home oxygen through [facility] and advised she previously received supplies from [facility] but was not happy with their care. Patient is normally independent with ADLS and plans to return home at time of discharge. Patient stated her son and daughter in law are DPOA-HC. Discharge Plan: Home
--- NOTE | 2022-04-26 13:46 | NUR ---
Primary nurse was assisted with [phone] patient care by [employer] student Danielle Gay and [employer] instructor Kandi MONSALVE RN.
[2022-04-26 15:18] VITALS: BP 126/44; PULSE 105; TEMP 98.4
--- NOTE | 2022-04-26 18:30 | NUR ---
PATIENT ALERT AND AWAKE, RESTING IN BED. NO NEEDS OR COMPLAINTS AT THIS TIME. CALL LIGHT WITH IN REACH.
--- NOTE | 2022-04-26 19:27 | NUR ---
PT RESTING COMFORTABLY. FAMILY IN ROM X2 PRIOR TO START OF TREATMENT BUT LEFT AT START OF TREATMENTS. PT PERFORMED TREATMENTS WITH A MOUTHPIECE AND PERFORMED WELL, STATES SHE SLEPT THE BEST SHE HAS IN AWHILE LAST NIGHT AND WOULD LIKE TO BE LEFT TO SLEEP DURING 0200. STATED TO PT I WOULD BE IN TO ASSESS AND CHECK OXYGEN AT THAT TIME. SHE AGREED. CALL LIGHT WITHIN REACH. PT PLACED ON HER NIGHT REGIMEN OF O2.
--- NOTE | 2022-04-26 19:35 | NUR ---
PATIENT IS IN BED VISITING WITH FAMILY AT BEDSIDE. PATIENT STATES THE LIDOCAINE PATCH ON HER LOWER BACK HAS DONE NOTHING TO HELP WITH THE HIP/NERVE PAIN IN LEFT HIP. THIS NURSE INFORMS PATIENT THAT HER HIP PATCH HAD BEEN D/C'D BY JUAN LUIS THIS DAY SHIFT. PATIENT REQUESTS THAT THE LOW BACK PATCH BE REMOVED AND SHE BE ALLOWED TO HAVE HER HS PATCH REINITIATED. THIS NURSE WILL CALL HOSPITALIST AND REQUEST AT THIS TIME.
[2022-04-26 20:43] VITALS: BP 142/49; PULSE 103; TEMP 97.9
[2022-04-27 00:07] VITALS: BP 116/42; PULSE 92; TEMP 97.6
[2022-04-27 04:32] VITALS: BP 119/45; PULSE 88; TEMP 98.7
[2022-04-27 07:24] LABS: GRAN # 9.1 K/mm3 (1.4-6.5); GRAN % 89.2 % (42.2-75.2); LYMPH # 0.5 K/mm3 (1.2-3.4); LYMPH % 4.7 % (20.0-51.0); MEAN CELL VOLUME 93 fl (80.0-100.0); MEAN CORPUSCULAR HGB CONC 31 g/dl (33.0-37.0); MEAN PLATELET VOLUME 10.3 fl (7.4-10.4); MONO # 0.6 K/mm3 (0.1-0.6); MONO % 5.7 % (1.7-9.3); PLATELET COUNT 305 K/mm3 (130-400); RED BLOOD COUNT 3.08 M/mm3 (4.10-5.30); REDCELL DISTRIBUTION WIDTH-CV 15.2 % (11.5-14.5)
[2022-04-27 07:30] LABS: HEMATOCRIT 28.5 % (37.0-47.0); HEMOGLOBIN 8.9 g/dl (12.5-16.0); MEAN CORPUSCULAR HEMOGLOBIN 29 pg (27-31)
[2022-04-27 07:44] VITALS: BP 132/51; PULSE 72; TEMP 97.5
[2022-04-27 07:50] LABS: CALCIUM 9.2 mg/dL (8.4-10.2); CREATININE, serum 1.12 mg/dL (0.57-1.11); POTASSIUM 5.3 mmol/L (3.5-4.5)
[2022-04-27 11:22] VITALS: BP 124/50; PULSE 99; TEMP 98.1
--- NOTE | 2022-04-27 13:47 | NUR ---
Installer Technician rounds: Patient has lung issues. She is concerned about being thin, but is grateful that she came to the hospital because she is doing so much better. She is grateful to not have to have anymore O2. Prayed for Patient.
[2022-04-27 15:35] VITALS: BP 115/41; PULSE 91; TEMP 97.8
--- NOTE | 2022-04-27 19:09 | NUR ---
PATIENT SITTING UP IN BED DOING PUZZLES ON HER IPAD. PATIENT STATES SHE DIDNT EAT ANY FULL MEALS BECAUSE SHE RECEIVED A DEHYDRATED HAMBURGER & CHEESE AND IT RUINED HER APPETITE. PATIENT DENIES PAIN, NEEDS OR CONCERNS. PATIENT HAS CALL LIGHT WITHIN REACH AND ENCOURAGED TO USE WITH NEEDS OR CONCERNS.
[2022-04-27 20:48] VITALS: BP 128/54; PULSE 80; TEMP 97.9
--- NOTE | 2022-04-27 20:53 | NUR ---
PATIENT IS MORE INTERACTIVE TODAY AND STATES SHE HAD A REALLY GOOD DAY. PATIENT BASES THIS BY BEING ABLE TO GET UP TO BATHROOM X 4, EATING HER CANDY AND IN GENERAL JUST FEELING BETTER. PATIENT STATES SHE WILL GO TO BED EARLY TONIGHT.
[2022-04-28 00:42] VITALS: BP 114/45; PULSE 85; TEMP 98
[2022-04-28 05:25] VITALS: BP 143/49; PULSE 80; TEMP 98.5
[2022-04-28 07:37] VITALS: BP 138/53; PULSE 79; TEMP 97.5
[2022-04-28 12:18] VITALS: BP 148/42; PULSE 85; TEMP 97.5
--- NOTE | 2022-04-28 13:10 | NUR ---
Senior Librarian rounds: Patient had a visitor in her room, so Senior Librarian visit was not completed.
[2022-04-28 15:38] VITALS: BP 111/36; PULSE 84; TEMP 98.1
[2022-04-28 19:47] VITALS: BP 110/39; PULSE 86; TEMP 97.9
--- NOTE | 2022-04-28 20:00 | NUR ---
Pt lying down in bed, watching TV. Shift assessment completed. A&O x4. VSS Pt reports having increased pain on her left leg, described as a burning type of pain. Tramadol is administered. L wrist INT CDI. Pt also states that she doesn't want to go to [facility], but instead she wants to go home. She states that she has been feeling alone and doesn't know anyone, which is making her feel sad. Tele is on. All medications administered per emar. Fall precautions remain in place. [address] Call light within reach.
[2022-04-29 00:09] VITALS: BP 135/54; PULSE 84; TEMP 97.9
[2022-04-29 04:17] VITALS: BP 129/43; PULSE 79; TEMP 98
[2022-04-29 07:42] VITALS: BP 140/57; PULSE 73; TEMP 97.9
[2022-04-29 08:21] LABS: EOS % 0.5 % (0.0-4.0); GRAN # 4.1 K/mm3 (1.4-6.5); GRAN % 69.5 % (42.2-75.2); LYMPH # 1.3 K/mm3 (1.2-3.4); LYMPH % 22.2 % (20.0-51.0); MEAN CELL VOLUME 91 fl (80.0-100.0); MEAN CORPUSCULAR HGB CONC 32 g/dl (33.0-37.0); MONO # 0.4 K/mm3 (0.1-0.6); MONO % 7.5 % (1.7-9.3); PLATELET COUNT 268 K/mm3 (130-400); RED BLOOD COUNT 3.26 M/mm3 (4.10-5.30); REDCELL DISTRIBUTION WIDTH-CV 14.8 % (11.5-14.5)
[2022-04-29 08:22] LABS: HEMATOCRIT 29.7 % (37.0-47.0); HEMOGLOBIN 9.5 g/dl (12.5-16.0); MEAN CORPUSCULAR HEMOGLOBIN 29 pg (27-31)
[2022-04-29 08:34] LABS: CALCIUM 9.1 mg/dL (8.4-10.2); CREATININE, serum 1.23 mg/dL (0.57-1.11); POTASSIUM 4.9 mmol/L (3.5-4.5)
[2022-04-29] MEDS ORDERED: DOXYCYCLINE 10100 MG PO (10:25)
[2022-04-29] MEDS ORDERED: ELIQUIS 2.5 PO (10:26)
[2022-04-29] MEDS ORDERED: NORVASC 5MG5 MG/TAB PO (10:26)
[2022-04-29] MEDS ORDERED: ATROVENT I0.2 MG/1 M IH (10:26)
[2022-04-29] MEDS ORDERED: PERFOROMIS20 MCG/2 M IH (10:26)
[2022-04-29] MEDS ORDERED: ASPIRIN 81M81 MG/TA2 PO (10:27)
[2022-04-29] MEDS ORDERED: CELEXA10 MG PO (10:27)
[2022-04-29] MEDS ORDERED: LASIX 20MG TABL20 MG PO (10:27)
[2022-04-29] MEDS ORDERED: PULMICORT0.5 MG/2 M IH (10:28)
[2022-04-29] MEDS ORDERED: PREDNISONE10 MG PO (10:29)
[2022-04-29] MEDS ORDERED: SALONPAS1 EACH TP (10:30)
[2022-04-29] MEDS ORDERED: MUCUS RELIEF400 M1 PO (10:30)
[2022-04-29] MEDS ORDERED: VITAMIND3 5000 PO (10:30)
[2022-04-29] MEDS ORDERED: PRINIVIL40 MG PO (10:33)
[2022-04-29] MEDS ORDERED: ULTRAM 50MG TAB50 MG PO (10:34)
[2022-04-29 11:28] VITALS: BP 122/50; PULSE 84; TEMP 98.5
--- NOTE | 2022-04-29 12:12 | NUR ---
[facility] [place].
--- NOTE | 2022-04-29 12:30 | NUR ---
PATIENTS IV AND TELE DISCONTINUED.
--- NOTE | 2022-04-29 12:37 | NUR ---
Follow-up visit: Patient thanked Slubber Runner for looking in on he again and wishing her well and God's blessings.
--- NOTE | 2022-04-29 12:40 | NUR ---
PATIENT LEFT IN STABLE CONDITION VIA WHEELCHAIR WITH JAMES VILLAFANA.
--- NOTE | 2022-04-29 14:01 | NUR ---
Hospice Music Therapy attended clinical rounds with the team and son, Bernardo is at bedside. Hospitalist is recommending SNF and patient's son is very much in agreement. JONATHON met with patient and Bernardo to discuss preferences which are 1) [facility] and 2) [facility]. JONATHON faxed referrals to both facilities. Juice at [facility] advised they can accept today with a covid test. JONATHON updated patient that [facility] can accept today. Ultimately, she is agreeable to go, however is tearful and hopes she can get home as soon as possible. Patient wants to be able to move around better and manage stairs so she can spend time with the children at her daughter in law's in home daycare. JONATHON reviewed IM form with patient who verbalized understanding and provided signature. JONATHON placed form in chart and provided copy to patient. JONATHON faxed discharge orders and negative covid results to Juice at [facility]. Transport time set for 1230. JONATHON provided time to patient and her son, Bernardo. Discharge Plan: [facility] SNF
== END 2022-04-29 12:45 | DRG 291 ==
LOC: COL.ER 20:30 → MEDICAL 04-25 14:04
PROVIDERS: Nurse Practitioner Family; Nurse Practitioner Primary Care; Physician Assistant; ADMIT Internal Medicine
DX: I13.0 Hypertensive heart and chronic kidney disease with heart failure and stage 1 through stage 4 chronic kidney disease, or unspecified chronic kidney disease (principal); E43 Unspecified severe protein-calorie malnutrition; I50.33 Acute on chronic diastolic (congestive) heart failure; J96.21 Acute and chronic respiratory failure with hypoxia; J44.1 Chronic obstructive pulmonary disease with (acute) exacerbation; N17.9 Acute kidney failure, unspecified; Z68.1 Body mass index [BMI] 19.9 or less, adult; I73.9 Peripheral vascular disease, unspecified; Z66 Do not resuscitate; F32.A Depression, unspecified; F41.9 Anxiety disorder, unspecified; Z20.822 Contact with and (suspected) exposure to COVID-19; E87.5 Hyperkalemia; I27.20 Pulmonary hypertension, unspecified; I25.10 Atherosclerotic heart disease of native coronary artery without angina pectoris; D64.9 Anemia, unspecified; M81.0 Age-related osteoporosis without current pathological fracture; E83.52 Hypercalcemia; N18.30 Chronic kidney disease, stage 3 unspecified; M19.90 Unspecified osteoarthritis, unspecified site; I08.3 Combined rheumatic disorders of mitral, aortic and tricuspid valves; Z88.0 Allergy status to penicillin; Z90.49 Acquired absence of other specified parts of digestive tract; Z79.82 Long term (current) use of aspirin; Z86.73 Personal history of transient ischemic attack (TIA), and cerebral infarction without residual deficits; Z86.718 Personal history of other venous thrombosis and embolism; Z79.01 Long term (current) use of anticoagulants; Z88.7 Allergy status to serum and vaccine; Z88.8 Allergy status to other drugs, medicaments and biological substances; Z91.041 Radiographic dye allergy status; Z87.891 Personal history of nicotine dependence; Z90.89 Acquired absence of other organs; Z23 Encounter for immunization
CPT/HCPCS: OP; A9270; G0378; J1940; J2920; J2930; J7512

== ENCOUNTER 2022-08-03 22:09 | Emergency (ER) | payer MEDICARE, OTHER ==
[~2022-08-03] VITALS: Ht 152.4 cm; Wt 38.2 kg
[~2022-08-03 22:09] MED LIST changes: +MUCUS RELIEF400 M1 PO; +PREDNISONE10 MG PO; +SALONPAS1 EACH TP; +ULTRAM 50MG TAB50 MG PO
[2022-08-03 22:29] LABS: BASO % 0.2 % (0.0-2.0); EOS % 0.4 % (0.0-4.0); GRAN # 8.6 K/mm3 (1.4-6.5); GRAN % 77.7 % (42.2-75.2); HEMATOCRIT 37.7 % (37.0-47.0); HEMOGLOBIN 12.1 g/dl (12.5-16.0); LYMPH # 1.5 K/mm3 (1.2-3.4); LYMPH % 13.8 % (20.0-51.0); MEAN CELL VOLUME 89 fl (80.0-100.0); MEAN CORPUSCULAR HEMOGLOBIN 29 pg (27-31); MEAN CORPUSCULAR HGB CONC 32 g/dl (33.0-37.0); MEAN PLATELET VOLUME 9.4 fl (7.4-10.4); MONO # 0.8 K/mm3 (0.1-0.6); MONO % 7.4 % (1.7-9.3); PLATELET COUNT 373 K/mm3 (130-400); RED BLOOD COUNT 4.25 M/mm3 (4.10-5.30); REDCELL DISTRIBUTION WIDTH-CV 17.2 % (11.5-14.5)
[2022-08-03 22:45] LABS: ALBUMIN 2.9 gm/dL (3.4-4.8); BILIRUBIN,TOTAL 0.3 mg/dL (0.2-1.2); CALCIUM 11.1 mg/dL (8.4-10.2); CREATININE, serum 1.11 mg/dL (0.57-1.11); POTASSIUM 3.6 mmol/L (3.5-4.5); TOTAL PROTEIN 6.8 gm/dL (6.2-8.1)
[2022-08-03 22:51] LABS: TROPONIN-I 0.022 ng/mL (0.00-0.033)
[2022-08-04] MEDS ORDERED: DOXYCYCLINE 10100 MG PO (00:20)
[2022-08-04] MEDS ORDERED: PREDNISONE50 MG PO (00:20)
[2022-08-04 00:32] VITALS: BP 133/54; PULSE 98
[2022-08-06] MEDS ORDERED: NORVASC 10MG10 MG PO (07:44)
[2022-08-06] MEDS ORDERED: ZESTRIL 20MG TA20 MG PO (07:48)
[2022-08-06] MEDS ORDERED: PLAVIX 75MG TAB75 MG PO (07:49)
[2022-08-06] MEDS ORDERED: NYSTATIN OR100 MU/ML PO (07:52)
[2022-08-06] MEDS ORDERED: K-TAB10 PO (07:54)
[2022-08-06] MEDS ORDERED: MELATIN 3 MG-11 TAB PO (07:59)
[2022-08-06] MEDS ORDERED: NATURAL SENNA8.6 MG PO (07:59)
[2022-08-06] MEDS ORDERED: TYLENOL 500MG500 MG PO (08:00)
[2022-08-06] MEDS ORDERED: PROAIR HFA0.09 MG/AC IH (08:00)
[2022-08-09] VITALS (7 sets, daily range): O2SAT 90–95
== END 2022-08-04 01:13 | disposition home or self-care (01) ==
LOC: COL.ER 22:09
PROVIDERS: Emergency Medicine
DX: J44.1 Chronic obstructive pulmonary disease with (acute) exacerbation (principal); J96.90 Respiratory failure, unspecified, unspecified whether with hypoxia or hypercapnia; Z87.891 Personal history of nicotine dependence; Z20.822 Contact with and (suspected) exposure to COVID-19; Z28.310 Unvaccinated for COVID-19
CPT/HCPCS: J7512